=== PATIENT | female | born 1995 | race Two or more races ===

== ENCOUNTER 2024-10-02 11:29 | Emergency (ER) | payer BC ==
[~2024-10-02] VITALS: Ht 154.9 cm; Wt 82.1 kg
[2024-10-02] MEDS ORDERED: IBUPROFEN 600 MG TABLET ONE (11:42)
[2024-10-02] MEDS: IBUPROFEN 600 MG TABLET PO ONE (11:47)
[2024-10-02] MEDS ORDERED: NAPR-1164 PO (12:44)
[2024-10-02 13:03] VITALS: BP 105/66; TEMP 98; O2SAT 100
== END 2024-10-02 13:04 | disposition home or self-care (01) ==
LOC: ER 11:41
DX: S43.402A Unspecified sprain of left shoulder joint, initial encounter (principal); X58.XXXA Exposure to other specified factors, initial encounter; Y93.89 Activity, other specified; Y92.89 Other specified places as the place of occurrence of the external cause; Y99.8 Other external cause status
CPT/HCPCS: 73030-TC